=== PATIENT | female | born 1960 | race Caucasian/White ===

== ENCOUNTER → 2024-04-23 11:40 | Outpatient (REF) | payer OTHER, SELFPAY | LOC: WDC 11:40 | PROVIDERS: ATTENDING PHYSICIAN Obstetrics & Gynecology Gynecology; FAMILY PHYSICIAN Family Medicine | DX: Z12.31 Encounter for screening mammogram for malignant neoplasm of breast (principal) | CPT/HCPCS: 77063; 77067 ==

== ENCOUNTER → 2024-08-17 14:34 | Outpatient (REF) | payer OTHER, SELFPAY | LOC: WDC 14:34 | PROVIDERS: ATTENDING PHYSICIAN Nurse Practitioner Adult Health; FAMILY PHYSICIAN Emergency Medicine | DX: N63.10 Unspecified lump in the right breast, unspecified quadrant (principal) | CPT/HCPCS: 76642 ==

== ENCOUNTER → 2024-10-31 12:31 | Outpatient (REF) | payer MEDICARE, SELFPAY | LOC: RAD 12:31 | PROVIDERS: ATTENDING PHYSICIAN Physical Medicine & Rehabilitation Sports Medicine; FAMILY PHYSICIAN Emergency Medicine | DX: M25.561 Pain in right knee (principal) | CPT/HCPCS: 77073 ==

== ENCOUNTER → 2024-12-21 06:38 | Outpatient (REF) | payer MEDICARE, SELFPAY | LOC: MRI 06:38 | PROVIDERS: ATTENDING PHYSICIAN Physical Medicine & Rehabilitation Sports Medicine; FAMILY PHYSICIAN Emergency Medicine | DX: M25.561 Pain in right knee (principal); M25.551 Pain in right hip; M79.651 Pain in right thigh; R29.898 Other symptoms and signs involving the musculoskeletal system; M54.16 Radiculopathy, lumbar region; S83.281A Other tear of lateral meniscus, current injury, right knee, initial encounter | CPT/HCPCS: 73718 ==

== ENCOUNTER → 2024-12-26 12:38 | Outpatient (REF) | payer MEDICARE, SELFPAY | LOC: HWRAD 12:38 | PROVIDERS: ATTENDING PHYSICIAN Physician Assistant; FAMILY PHYSICIAN Emergency Medicine | DX: J32.8 Other chronic sinusitis (principal) | CPT/HCPCS: 70486 ==

== ENCOUNTER → 2025-02-18 07:24 | Outpatient (REF) | payer MEDICARE, SELFPAY | LOC: RAD 07:24 | PROVIDERS: ATTENDING PHYSICIAN Student in an Organized Health Care Education/Training Program; FAMILY PHYSICIAN Emergency Medicine | DX: M81.0 Age-related osteoporosis without current pathological fracture (principal) | CPT/HCPCS: 77080 ==

== ENCOUNTER → 2025-04-24 12:56 | Outpatient (REF) | payer MEDICARE, SELFPAY | LOC: WDC 12:56 | PROVIDERS: ATTENDING PHYSICIAN Obstetrics & Gynecology Gynecology; FAMILY PHYSICIAN Family Medicine | DX: Z12.31 Encounter for screening mammogram for malignant neoplasm of breast (principal) | CPT/HCPCS: 77063; 77067 ==